=== PATIENT | female | born 1955 | race Caucasian/White ===

== ENCOUNTER 2019-09-18 12:22 | Emergency (ER) | payer SELFPAY ==
[~2019-09-18] VITALS: Ht 162.6 cm; Wt 90.0 kg
[2019-09-18] MEDS ORDERED: SYNTHROID125 MCG PO (12:42)
[2019-09-18] MEDS ORDERED: GLIPIZIDE10 MG (12:42)
[2019-09-18] MEDS ORDERED: ATORVASTATIN CA40 MG PO (12:42)
[2019-09-18] MEDS ORDERED: ASPIR-LOW81 MG (12:42)
[2019-09-18] MEDS ORDERED: CLOPIDOGREL75 MG PO (12:42)
[2019-09-18] MEDS ORDERED: BENICAR20 MG PO (12:42)
[2019-09-18] MEDS ORDERED: METOPROLOL TART25 MG PO (12:42)
[2019-09-18] MEDS ORDERED: METFORMIN HCL500 MG PO (12:42)
[2019-09-18] MEDS ORDERED: FLOMAX0.4 MG PO (12:42)
[2019-09-18] MEDS ORDERED: TETANUS/DIPHTHERIA TOX ADULT 0.5 ML SYR IM ONE (12:45)
[2019-09-18] MEDS ORDERED: TETANUS/DIPHTHERIA TOX ADULT 0.5 ML SYR ONE (12:49)
--- NOTE | 2019-09-18 13:10 | Diagnostic Imaging Report ---
Examination: CT head without contrast Clinical Indication: Fall with head injury. Technique: Transaxial noncontrast images from the skull base through the vertex were obtained. Sagittal and coronal reformatted images were done. Dose modulation, iterative reconstruction, and/or weight based adjustment of the mA/kV was utilized to reduce the radiation dose to as low as reasonably achievable. Comparison: None. Findings: Scalp: No abnormalities. Bones: Intact. No fractures. No blastic or lytic lesions. Brain sulci: Appropriate for patient's age. Ventricles: Normal in size and configuration. No hydrocephalus. . Extra-axial space: No abnormalities. Parenchyma: There are subtle patchy areas of low-attenuation within subcortical and periventricular white matter, nonspecific, but could represent microvascular ischemic disease. No masses, hemorrhage, or acute or chronic cortical based vascular insults. Suprasellar region: No abnormalities. Craniocervical junction: The foramen magnum is patent. No Chiari one malformation. Incidental findings: Atherosclerotic calcification of the cavernous and supraclinoid internal carotid and V4 segments of the bilateral vertebral arteries. Impression: 1. No acute intracranial finding. 2. Mild chronic microvascular ischemic change. Signed by: Dr. Beatriz Brink M.D. on 09/18/2019 1:07 PM
--- NOTE | 2019-09-18 13:11 | Diagnostic Imaging Report ---
Examination: CT Face without Contrast History:Fall with facial injury Comparison studies: None Technique: Axial images were obtained through the maxillofacial region. Coronal and sagittal reconstructions obtained from the axial data. Dose modulation, iterative reconstruction, and/or weight based adjustment of the mA/kV was utilized to reduce the radiation dose to as low as reasonably achievable. Intravenous contrast: None Findings: Soft tissues: No abnormalities. Bones: No fractures or bony abnormalities. Orbits: Globes: Intact Extra or intraconal abnormalities: None. Paranasal sinuses: Clear. IMPRESSION: No acute facial abnormality. Signed by: Dr. Beatriz Brink M.D. on 09/18/2019 1:08 PM
[2019-09-18 13:21] VITALS: BP 115/63
[2019-09-18] MEDS ORDERED: NAPROSYN500 MG PO (13:21)
[2019-09-18] MEDS ORDERED: ULTRAM 50MG50 MG PO (13:25)
== END 2019-09-18 13:32 | disposition home or self-care (01) ==
LOC: FSED 12:22
DX: S06.0X0A Concussion without loss of consciousness, initial encounter (principal); R51 Headache; S00.31XA Abrasion of nose, initial encounter; W01.0XXA Fall on same level from slipping, tripping and stumbling without subsequent striking against object, initial encounter; Y92.481 Parking lot as the place of occurrence of the external cause
CPT/HCPCS: 70450; 70486; 90471; 90714; 96372; 99283